=== PATIENT | male | born 1960 | race Two or more races ===

== ENCOUNTER 2025-02-21 19:37 | Inpatient (IN) | payer MEDICAID, OTHER ==
[~2025-02-21] VITALS: Ht 172.7 cm; Wt 82.4 kg
--- NOTE | 2025-02-21 20:57 | ED.PDOC ---
History of Present Illness HPI Comments This is a 64-year-old male who comes in with chief complaint of left back pain that radiates down to the left leg. The patient also has developing neuropathy and states that the pain seems to be worsening. The patient does has a history of recent chemotherapy approximately two months ago. Ever since the jian motherapy, the patient was has been having the symptoms of neuropathy. There has been no nausea, vomiting or diarrhea. The patient was also somewhat pale and has been anemic in the past. Time Seen by MD: 20:13 Reviewed Notes: Nurses Notes, Medications, Allergies (No allergies to medications) Allergies: Coded Allergies: NO KNOWN ALLERGIES (Unverified , 02/21/25) Information Source: Patient, Relative Mode of Arrival: Wheelchair Severity: Moderate Timing: Days Duration: Since onset Prehospital treatment: None Associated signs and symptoms Left flank pain that radiates around to the left leg Past Medical History PAST MEDICAL HISTORY: Cancer (Esophageal cancer with the), DM Surgical History: Hernia Repair Family History Family History: Family hx of Cancer Social History Smoker: Non-Smoker Alcohol: Denies ETOH Use Drugs: Denies Drug Use Lives In: Home Constitutional: denies: chills, diaphoresis, fatigue, fever, malaise, sweats, weakness, others EENTM: denies: blurred vision, double vision, ear bleeding, ear discharge, ear drainage, ear pain, ear ringing, eye pain, eye redness, hearing loss, mouth pain, mouth swelling, nasal discharge, nose bleeding, nose congestion, nose pain, photophobia, tearing, throat pain, throat swelling, voice changes, others Respiratory: denies: cough, hemoptysis, orthopnea, SOB at rest, shortness of breath, SOB with excertion, stridor, wheezing, others Cardiovascular: denies: chest pain, dizzy spells, diaphoresis, Dyspnea on exertion, edema, irregular heart beat, left arm pain, lightheadedness, pa lpitations, PND, syncope, others Gastrointestinal: denies: abdomen distended, abdominal pain, blood streaked bowels, constipated, diarrhea, dysphagia, difficulty swallowing, hematemesis, melena, nausea, poor appetite, poor fluid intake, rectal bleeding, rectal pain, vomiting, others Genitourinary: denies: burning, dysuria, flank pain, frequency, hematuria, incontinence, penile discharge, penile sore, pain, testicle pain, testicle swelling, urgency, others Neurological: denies: dizziness, fainting, headache, left sided numbness, left sided weakness, numbness, paresthesia, pre-existing deficit, right sided numbness, right sided weakness, seizure, speech problems, tingling, tremors, weakness, others Musculoskeletal: reports: others (Left leg pain as well as left flank pain); denies: back pain, gout, joint pain, joint swelling, muscle pain, muscle stiffness, neck pain Integumetry: denies: bruises, change in color, change in hair/nails, dryness, laceration, lesions, lumps, rash, wounds, others Allergic/Immunocompromised: denies: Difficulty Healing, Frequent Infections, Hives, Itching, others Hematologic/Lymphatic: denies: anemia, blood clots, easy bleeding, easy bruising, swollen glands, others Endocrine: denies: excessive hunger, excessive sweating, excessive thirst, excessive urination, flushing, intolerance to cold, intolerance to heat, unexplained weight gain, unexplained weight loss, others Psychiatric: denies: anxiety, bipolar disorder, depression, hopeless, panic disorder, schizophrenia, sleepless, suicidal, others Physical Exam General Appearance: Moderate Distress HEENT: Normal ENT Inspection, Pharynx Normal, TMs Normal Neck: Full Range of Motion, Non-Tender, Normal, Normal Inspection Respiratory: Chest Non-Tender, Lungs Clear, No Accessory Muscle Use, No Respiratory Distress, Normal Breath Sounds Cardiovascular: No Edema, No JVD, No Murmur, No Gallop, Normal Peripheral Pulses, Regular Rate/Rhythm Breast Exam: Deferred Gastrointestinal: No Organomegaly, Non Tender, No Pulsatile Mass, Normal Bowel Sounds, Soft Genitalia: Deferred Pelvic: Deferred Rectal: Deferred Extremities: No calf tenderness, Normal capillary refill, Normal inspection, Normal range of motion, Non-tender, No pedal edema Musculoskeletal : Location: Left Extremity Location: Back Apperance: Limited ROM, Tenderness: Moderate Neurologic: Alert, nurse outreach case manager II-XII nml as Tested, No Motor Deficits, Normal Affect, Normal Mood, No Sensory Deficits Cerebellar Function: Normal Reflexes: Normal Skin: Dry, Normal Color, Warm Lymphatic: No Adenopathy Was a procedure done? Was a procedure done?: No Differential Dx Considerations may include: Flank pain, neuropathy, generalized weakness X-Ray, Labs, Meds, VS Vital Signs Date Time Temp Pulse Resp B/P (MAP) Pulse Ox O2 Delivery O2 Flow Rate FiO2 02/21/25 20:45 97.5 124 22 115/67 (83) 100 97.5 Lab Test 02/21/25 21:15 02/21/25 20:56 Range/Units White Blood Count 12.6 H 4.4-10.8 10^3/uL Red Blood Count 3.45 L 4.5-5.90 10^6/uL Hemoglobin 9.4 L 13.5-17.5 g/dL Hematocrit 28.7 L 41.0-53.0 % Mean Corpuscular Volume 83.4 80.0-100.0 fL Mean Corpuscular Hemoglobin 27.2 L 28.0-32.0 pg Mean Corpuscular Hemoglobin Concent 32.7 32.0-36.0 g/dL Red Cell Distribution Width 17.9 H 11.8-14.3 % Platelet Count 487 H 140-450 10^3/uL Mean Platelet Volume 8.2 6.9-10.8 fL Neutrophils (%) (Auto) 76.0 37.0-80.0 % Lymphocytes (%) (Auto) 15.2 10.0-50.0 % Monocytes (%) (Auto) 8.1 0.0-12.0 % Eosinophils (%) (Auto) 0.2 0.0-7.0 % Basophils (%) (Auto) 0.5 0.0-2.0 % Neutrophils # (Auto) 9.6 H 1.6-8.6 10 ^3/uL Lymphocytes # (Auto) 1.9 0.4-5.4 10 ^3/uL Monocytes # (Auto) 1.0 0-1.3 10 ^3/uL Eosinophils # (Auto) 0 0-0.8 10 ^3/uL Basophils # (Auto) 0.1 0-0.2 10 ^3/uL Nucleated Red Blood Cells 0.0 % Sodium Level 134 L 136-145 mmol/L Potassium Level 4.0 3.5-5.1 mmol/L Chloride Level 105 98-107 mmol/L Carbon Dioxide Level 15 L 20-31 mmol/L Anion Gap 14 5-15 Blood Urea Nitrogen 21 9-23 mg/dL Creatinine 1.26 0.700-1.30 mg/dL Glomerular Filtration Rate Calc 64 >90 mL/min BUN/Creatinine Ratio 16.7 10.0-20.0 Serum Glucose 218 H 74-106 mg/dL Calcium Level 10.3 8.7-10.4 mg/dL Urine Color Yellow Yellow Urine Clarity Clear Clear Urine pH 7.5 5.0-9.0 Urine Specific [place] 1.017 1.001-1.035 Urine Protein Negative Negative Urine Ketones Trace Negative Urine Blood Negative Negative /uL Urine Nitrite Negative Negative Urine Bilirubin Negative Negative Urine Urobilinogen 2 H Negative mg/dL Urine Leukocyte Esterase Negative Negative /uL Urine RBC 1 0 - 3 /hpf Urine Microscopic WBC 1 0-3 /HPF Urine Squamous Epithelial Cells None seen <5 /hpf Urine Bacteria None seen None Seen /hpf Urine Hyaline Casts Few 0 - 2 /lpf Urine Glucose Normal Normal mg/dL The patient's urine test is negative The urine test is negative for any infection The patient's CBC shows anemia with a hemoglobin of 9.4 and hematocrit 28.7 The platelets are 487 At this time, the patient was being admitted to the hospitalist The patient was having persistent pain The patient is understands and agrees with the management Images Reviewed?: Images reviewed and evaluated by me Time of 1ST Reevaluation: 22:11 Reevaluation 1ST: Unchanged Patient Education/Counseling: Diagnosis, Treatment, Prognosis Family Education/Counseling: Diagnosis, Treatment, Prognosis Departure 1 Departure Time of Disposition: 22:11 Impression: Primary Impression: Left leg pain Additional Impression: Neuropathy Disposition: 09 ADMITTED INPATIENT Admit to: Med Surg Condition: Fair Critical Care Note Critical Care Time?: No Stability Stability form required: Yes Unstable for transfer: ED Physician Assesment (Clinical assesment) Heart Score Heart Score: Heart Score Response (Comments) Value History N/A 0 EKG N/A 0 Age N/A 0 Risk Factors N/A 0 Troponin N/A 0 Total 0 DAMION ROLLINS MD February 21, 2025 20:57
[2025-02-21 21:14] LABS: Urine Bacteria None Seen /hpf (None Seen)
[2025-02-21 21:30] LABS: Basophils # (auto) 0.1 10 ^3/uL (0-0.2); Eosinophils # (auto) 0 10 ^3/uL (0-0.8); Eosinophils % (auto) 0.2 % (0.0-7.0); Hemoglobin 9.4 g/dL (13.5-17.5); Lymphocytes # (auto) 1.9 10 ^3/uL (0.4-5.4); Mean Corpuscular Volume 83.4 fL (80.0-100.0)
[2025-02-21 21:31] LABS: Urine Blood Negative /uL (Negative); Urine Clarity Clear (Clear); Urine Color Yellow (Yellow); Urine Hyaline Cast FEW /lpf (0 - 2); Urine Protein, UAD Negative (Negative); Urine Specific Gravity 1.017 (1.001-1.035); Urine Squamous Epithelial Cell None Seen /hpf (<5); Urine Urobilinogen 2 mg/dL (Negative); Urine WBC 1 /HPF (0-3); Urine pH 7.5 (5.0-9.0)
[2025-02-21 21:31] LABS: Basophils % (auto) 0.5 % (0.0-2.0); Hematocrit 28.7 % (41.0-53.0); Lymphocytes % (auto) 15.2 % (10.0-50.0); Mean Corpuscular Hemoglobin 27.2 pg (28.0-32.0); Mean Corpuscular Hgb Conc. 32.7 g/dL (32.0-36.0); Monocytes % (auto) 8.1 % (0.0-12.0); Neutrophils # (auto) 9.6 10 ^3/uL (1.6-8.6); Platelet Count (auto) 487 10^3/uL (140-450); Red Blood Cells 3.45 10^6/uL (4.5-5.90); Red Cell Distribution Width 17.9 % (11.8-14.3); White Blood Cell 12.6 10^3/uL (4.4-10.8)
[2025-02-21 21:39] LABS: Anion Gap 14 (5-15); Carbon Dioxide 15 mmol/L (20-31); Chloride 105 mmol/L (98-107); Sodium 134 mmol/L (136-145)
[2025-02-21 21:40] LABS: Calcium 10.3 mg/dL (8.7-10.4)
[2025-02-21 21:45] LABS: BUN/Creatinine Ratio 16.7 (10.0-20.0); Blood Urea Nitrogen 21 mg/dL (9-23)
[2025-02-21 21:52] LABS: Glucose 218 mg/dL (74-106)
[2025-02-21] MEDS ORDERED: ONDANSETRON HCL 4 MG/2 ML VIAL IV PRN (23:00)
[2025-02-21] MEDS ORDERED: ACETAMINOPHEN 325 MG TAB PO PRN (23:00)
[2025-02-22] VITALS (8 sets, daily range): BP systolic 112–143; BP diastolic 64–79; PULSE 79–99; RESP 16–24; TEMP 97.8–98.9; O2SAT 96–100
[2025-02-22] MEDS: ONDANSETRON HCL 4 MG/2 ML VIAL IV ONE (00:47)
[2025-02-22] MEDS: SODIUM CHLORIDE 0.9% 500 ML IV ONE (00:47)
[2025-02-22] MEDS: MORPHINE SULFATE 4 MG/ML SYR/VIAL IV ONE (00:48)
[2025-02-22] MEDS: MORPHINE SULFATE INJ 2 MG/ml SYRG IV PRN (03:15)
--- NOTE | 2025-02-22 03:19 | DVHHP2 ---
History of Present Illness History of Present Illness This is a 64-year-old male with a history of esophageal cancer treated with six cycles of chemotherapy in [place], the last one completed approximately two months ago. He recently immigrated to the [place] The patient presents with progressive for 2 weeks low back pain radiating to the left leg, described as sharp and exacerbated by ambulation. He denies numbness, paresthesia, or bowel/bladder incontinence. The patient reports that he was prescribed gabapentin, tramadol and trazodone at [facility], but his symptoms have worsened despite medication. He is seeking evaluation and pain management. He denies nausea, vomiting, weight loss, dysphagia, or other systemic symptoms at this time. The patient reports that surgery for his cancer was deferred due to proximity to vital structures (possible R2 resection risk). Past Medical History: Esophageal cancer (no surgical resection, received chemotherapy) Diabetes mellitus Surgical History: Hernia repair Medications: Tramadol Trazodone Gabapentin Allergies: No known drug allergies Social History: Non-smoker Denies alcohol and drug use Lives at home Review of Systems: Negative except as per HPI. Denies fevers, chills, night sweats, weakness, weight loss, bowel or bladder dysfunction, or neurologic deficits. Review of Systems Allergies: Coded Allergies: NO KNOWN ALLERGIES (Unverified , 02/21/25) Medications Current Medications Medications Dose Ordered Sig/Edward Route Start Time Stop Time Status Last Admin Dose Admin Acetaminophen 650 mg Q6HP PRN PO 02/21/25 23:00 Acetaminophen/ Hydrocodone Bitart 1 tab Q4HP PRN PO 02/21/25 23:00 Ondansetron HCl 4 mg Q4HP PRN IV 02/21/25 23:00 Morphine Sulfate 2 mg Q4HPRN PRN IV 02/21/25 23:00 02/22/25 03:15 2 MG Enoxaparin Sodium 40 mg DAILY SC 02/22/25 10:00 Exam Vital Signs Vital Signs Date Time Temp Pulse Resp B/P (MAP) Pulse Ox O2 Delivery O2 Flow Rate FiO2 02/22/25 03:15 79 18 129/72 02/22/25 00:20 98.0 100 98.0 02/22/25 00:20 Room Air* 0 21 Exam General: Alert, in mild distress due to pain HEENT: Normocephalic, atraumatic Cardiovascular: RRR, no murmurs, gallops, or rubs Pulmonary: Clear breath sounds bilaterally Abdomen: Soft, non-tender, normoactive bowel sounds Back: Mild tenderness over lumbar spine, no deformity Neurological: No focal deficits, strength intact, no saddle anesthesia Extremities: No edema, pulses present Labs/Xrays Labs Test 02/22/25 00:39 02/21/25 21:15 02/21/25 20:56 Range/Units POC Glucose 161 H 70-106 mg/dl White Blood Count 12.6 H 4.4-10.8 10^3/uL Red Blood Count 3.45 L 4.5-5.90 10^6/uL Hemoglobin 9.4 L 13.5-17.5 g/dL Hematocrit 28.7 L 41.0-53.0 % Mean Corpuscular Volume 83.4 80.0-100.0 fL Mean Corpuscular Hemoglobin 27.2 L 28.0-32.0 pg Mean Corpuscular Hemoglobin Concent 32.7 32.0-36.0 g/dL Red Cell Distribution Width 17.9 H 11.8-14.3 % Platelet Count 487 H 140-450 10^3/uL Mean Platelet Volume 8.2 6.9-10.8 fL Neutrophils (%) (Auto) 76.0 37.0-80.0 % Lymphocytes (%) (Auto) 15.2 10.0-50.0 % Monocytes (%) (Auto) 8.1 0.0-12.0 % Eosinophils (%) (Auto) 0.2 0.0-7.0 % Basophils (%) (Auto) 0.5 0.0-2.0 % Neutrophils # (Auto) 9.6 H 1.6-8.6 10 ^3/uL Lymphocytes # (Auto) 1.9 0.4-5.4 10 ^3/uL Monocytes # (Auto) 1.0 0-1.3 10 ^3/uL Eosinophils # (Auto) 0 0-0.8 10 ^3/uL Basophils # (Auto) 0.1 0-0.2 10 ^3/uL Nucleated Red Blood Cells 0.0 % Sodium Level 134 L 136-145 mmol/L Potassium Level 4.0 3.5-5.1 mmol/L Chloride Level 105 98-107 mmol/L Carbon Dioxide Level 15 L 20-31 mmol/L Anion Gap 14 5-15 Blood Urea Nitrogen 21 9-23 mg/dL Creatinine 1.26 0.700-1.30 mg/dL Glomerular Filtration Rate Calc 64 >90 mL/min BUN/Creatinine Ratio 16.7 10.0-20.0 Serum Glucose 218 H 74-106 mg/dL Calcium Level 10.3 8.7-10.4 mg/dL Urine Color Yellow Yellow Urine Clarity Clear Clear Urine pH 7.5 5.0-9.0 Urine Specific [place] 1.017 1.001-1.035 Urine Protein Negative Negative Urine Ketones Trace Negative Urine Blood Negative Negative /uL Urine Nitrite Negative Negative Urine Bilirubin Negative Negative Urine Urobilinogen 2 H Negative mg/dL Urine Leukocyte Esterase Negative Negative /uL Urine RBC 1 0 - 3 /hpf Urine Microscopic WBC 1 0-3 /HPF Urine Squamous Epithelial Cells None seen <5 /hpf Urine Bacteria None seen None Seen /hpf Urine Hyaline Casts Few 0 - 2 /lpf Urine Glucose Normal Normal mg/dL Assessment/Plan Assessment/Plan #Acute intractable lumbar pain #Possible sciatica #Rule out bone fracture #Esophageal cancer #Rule out mets? #Leukocytosis #Anemia, possible 2 to Ca #Diabetes type 2 #JOHN due to VMN w/o baseline creatinine Admit Med/surg CT scan: thorax/abdomen/pelvis with contrast Lumbar MRI [place] Morphine Cyclobenzaprine Gabapentin ISS Enoxaparin SC Protonix IV Labs am Case discussed with Dr Blackburn Full code Plan discussed with: Patient, Other (RN) My Orders Orders - FÉLIX RAMIREZ Procedure Category Date Status Time Admit ADMIT 02/21/25 Transmitted 22:54 Code Status CODE 02/21/25 Transmitted 22:54 Vital Signs INGA 02/21/25 In Process 22:54 Review Orders With INGA 02/21/25 In Process Adm. 22:54 Consistent DIET 02/22/25 Transmitted Carb(Ccho)Diabetes Breakfast Acetaminophen Tablet PHA 02/21/25 In Process (Tylenol Tablet) 23:00 Notify Of Changes INGA 02/21/25 In Process From Base 22:54 Advance Directive INGA 02/21/25 In Process 22:54 Chest Two Views XY 02/22/25 Logged Routine 04:00 Patient Condition ORDERS 02/21/25 Transmitted 22:54 Allergies INGA 02/21/25 In Process 22:54 Hydrocodone-Acet PHA 02/21/25 In Process 5/325mg Tab ([place] 23:00 Ondansetron Hcl PHA 02/21/25 In Process (Zofran) 23:00 Morphine Sulfate PHA 02/21/25 In Process Injection 23:00 Enoxaparin Sodium PHA 02/22/25 In Process (Lovenox) 10:00 Lumbar Spine 3 View XY 02/21/25 Logged 22:56 Date of Service: February 21, 2025 Billing Provider: YEVGENIY BLACKBURN MD Common Visit Codes: 76906-AFIYTNO INP/OBS CARE (HIGH) Secondary Visit Codes: 54647-OYNIFFZB CARE PLAN 30 MINUTES FÉLIX RAMIREZ RESIDENT February 22, 2025 03:19
[2025-02-22] MEDS ORDERED: DEXTROSE (50%) 50ML SYRG IV PRN (04:30)
[2025-02-22] MEDS: ACCU-CHEK COMFORT CURVE STRIP VI SCH (06:16)
[2025-02-22] MEDS: InsuLIN REG 1unit/0.01ml Soln (100units/ml) SC SCH (06:20)
[2025-02-22 07:28] LABS: Basophils # (auto) 0 10 ^3/uL (0-0.2); Basophils % (auto) 0.5 % (0.0-2.0); Eosinophils # (auto) 0.1 10 ^3/uL (0-0.8); Eosinophils % (auto) 0.5 % (0.0-7.0); Hematocrit 26.7 % (41.0-53.0); Hemoglobin 8.8 g/dL (13.5-17.5); Lymphocytes # (auto) 1.8 10 ^3/uL (0.4-5.4); Lymphocytes % (auto) 18.1 % (10.0-50.0); Mean Corpuscular Hemoglobin 27.4 pg (28.0-32.0); Mean Corpuscular Volume 83.1 fL (80.0-100.0); Monocytes # (auto) 1.1 10 ^3/uL (0-1.3); Neutrophils # (auto) 7.1 10 ^3/uL (1.6-8.6); Neutrophils % (auto) 69.9 % (37.0-80.0); Nucleated Red Blood Cells % 0.1 %; Platelet Count (auto) 382 10^3/uL (140-450); Red Blood Cells 3.22 10^6/uL (4.5-5.90); Red Cell Distribution Width 18.2 % (11.8-14.3); White Blood Cell 10.2 10^3/uL (4.4-10.8)
[2025-02-22 07:38] LABS: Albumin 3.9 g/dL (3.2-4.8); Alkaline Phosphatase 104 U/L (46-116); Anion Gap 11 (5-15); BUN/Creatinine Ratio 19.4 (10.0-20.0); Bilirubin, Total 0.5 mg/dL (0.2-1.0); Blood Urea Nitrogen 20 mg/dL (9-23); Calcium 9.8 mg/dL (8.7-10.4); Chloride 105 mmol/L (98-107); Potassium 3.6 mmol/L (3.5-5.1); Total Protein 7.4 g/dL (5.7-8.2)
[2025-02-22 07:44] LABS: Alanine Aminotransferase < 9 U/L (7-40); Aspartate Aminotransferase 12 U/L (13-40); Carbon Dioxide 19 mmol/L (20-31); Glucose 136 mg/dL (74-106); Sodium 135 mmol/L (136-145)
[2025-02-22] MEDS: IOHEXOL 300 MG/ML 100ML BOTTLE IJ ONE (08:33)
--- NOTE | 2025-02-22 09:27 | DVH ---
CHEST RADIOGRAPH Indication: dyspnea Technique: Frontal and lateral view of the chest was obtained Comparison: None FINDINGS: Lines and Tubes: None Lungs: Multifocal airspace disease. Pleura: No effusion. No pneumothorax. Cardiomediastinal contours: Unremarkable Bones: Unremarkable IMPRESSION: Multifocal airspace disease.
[2025-02-22] MEDS: GABAPENTIN 100 MG CAP PO SCH (10:12)
[2025-02-22] MEDS: PANTOPRAZOLE 40 MG/10 ML VIAL INJ IV SCH (10:13)
[2025-02-22] MEDS: ENOXAPARIN SOD 40 MG/0.4 ML SYRINGE SC SCH (10:13)
--- NOTE | 2025-02-22 11:22 | DVH ---
PROCEDURE: MRI LUMBAR SPINE WO CONTRAST INDICATION: lumbar pain Exam Date: 02/22/2025 08:17 AM COMPARISON: None TECHNIQUE: MRI lumbar spine without intravenous contrast. FINDINGS: The lumbar alignment is intact. Abnormal marrow signal in the left L1, L2, and L3 vertebral bodies. S oft tissue mass involving the left paraspinal soft tissues at the L2-3 level measuring up to 53 mm. There are degenerative endplate changes including modic endplate changes with anterior and lateral o steophytes throughout the lumbar spine. The visualized distal spinal cord and conus medullaris are wi thin normal limits. The conus medullaris appears to terminate within normal limits. The following axial levels are detailed below: T12-L1: Unremarkable. L1-L2: There is a mild circumferential disc bulge. No significant central canal or neuroforaminal s tenosis. L2-L3: Unremarkable. L3-L4: Unremarkable. L4-L5: There is a moderate circumferential disc bulge complicated by facet arthropathy associated w ith mild to moderate left neuroforaminal stenosis. No significant central canal stenosis. L5-S1: There is a moderate circumferential disc bulge complicated by facet arthropathy associated wi th mild to moderate bilateral neuroforaminal stenosis. No significant central canal stenosis. IMPRESSION: 1. Abnormal marrow signal in the left vertebral bodies of L1 through L3. Adjacent left paraspinal mas s. Findings are concerning for malignancy. Findings are incompletely evaluated without intravenous contrast. Recommend further evaluation with MRI of the lumbar spine with intravenous contrast. Also recommend further evaluation with CT of the abdomen and pelvis with contrast. Paraspinal mass is like ly amenable to CT-guided biopsy. 2. Multilevel degenerative disease. No significant central canal stenosis. Neural foraminal stenosis as above. Please note there may be tumor involving left neural foramen in the upper lumbar spine alt misty this is not well evaluated without intravenous contrast. HS:Y
--- NOTE | 2025-02-22 11:52 | DVH ---
Indication: esophageal cancer Technique: CT axial images of the chest, abdomen and pelvis are obtained with intravenous contrast. Coronal and sagittal reformats were obtained. Radiation Dose Information: CTDI volume is 12.09 mGy. Dose-length product is 887.83 mGy*cm Comparison: None FINDINGS: Trachea is patent. No pneumothorax. Right upper lobe solid nodule measuring 1.8 cm. Right upper lobe solid nodule measuring 10 mm. Right upper lobe ground-glass nodule measuring 6 mm. Left upper lobe so lid nodule measuring 7 mm. Left upper lobe solid nodule measuring 5 mm. Left upper lobe ground-glass nodule measuring 7 mm. Left lower lobe solid nodule measuring 8 mm. Left lower lobe ground-glass nodu le measuring 7 mm. Left lower lobe subpleural nodule measuring 7 mm. Small left pleural effusion. The heart is normal in size. Enlarged aortopulmonary lymph node measuring 1.9 cm. Coronary artery lee cification disease. No supraclavicular or axillary lymphadenopathy. There is extensive wall thickening of the mid to distal esophagus. Gastric wall thickening Adrenal glands unremarkable. No enhancing splenic lesion. Pancreas is unremarkable. No enhancing hepatic lesion. No CT evidence for cholelithiasis. The kidneys demonstrate no hydronephrosism Heterogeneously enhancing lesion in the posterior left perirenal space measuring 4.9 x 4.9 cm extendi ng to the left psoas musculature . Other smaller posterior left perianal lesions measuring 1.9 cm, 1 .1 cm, 3.1 cm. The 3.1 cm lesion May extend into the left kidney. Mesenteric axis soft tissue density surrounding the celiac artery Stomach nondistended. Small bowel loops are normal in caliber. Moderate volume stool in the colon. No rmal appendix. Abdominal aorta normal in caliber. Bladder distended. Posterior/ left bladder wall asymmetrical thick ening. Presacral edema. No inguinal lymphadenopathy. Possible posterior right gluteal mass measuring 6.1 x 7.3 cm. L1 lytic and destructive lesion measuring 1.7 cm. L2 lytic and destructive lesion measuring 2.2 cm. T here is a large expansile and destructive lesion involving the anterolateral right 9th rib measuring 6.0 x 6.1 cm. IMPRESSION: 1. Mid to distal esophageal wall thickening consistent with patient's known history of esophageal car cinoma. There is also gastric wall thickening. Correlate to exclude of the esophageal carcinoma. 2. Left perirenal soft tissue masses /necrotic lesions measuring up to 4.9 cm as described above cons istent with metastatic lesions. 3. Bilateral pulmonaryNodules up to 1.8 cm, likely metastases 4. Destructive lytic metastatic lesions at L1 and L2 vertebral bodies measuring 1.7 and 2.2 cm respec tively. Recommend MRI lumbar spine with and without contrast to evaluate for neural foraminal, spinal canal compression. 5. Antral lateral 9th right rib expansile and destructive lesion with soft tissue component measuring 6.1 cm consistent with metastatic disease. 6. Mesenteric axis soft tissue density surrounding the celiac artery, may represent metastatic diseas e. 7. Small left pleural effusion. 8. Mediastinal lymphadenopathy. 9. Left lateral and posterior bladder wall thickening. 10. Other findings as described.
--- NOTE | 2025-02-22 14:14 | DVHPNRES ---
Progress Note Date Seen: February 22, 2025 Resident Creating Document: PARESH CYR RESIDENT Medical Necessity Reason Pt with a Central, PICC or Fol: No Subjective Review of Systems Mr Jaimes is 64-year-old male with a history of esophageal cancer treated with six cycles of chemotherapy in [place], the last one completed approximately two months ago. He recently immigrated to the [place] The patient presents with progressive for 2 weeks low back pain radiating to the left leg, described as sharp and exacerbated by ambulation. He denies numbness, paresthesia, or bowel/bladder incontinence. The patient reports that he was prescribed gabapentin, tramadol and trazodone at [facility], but his symptoms have worsened despite medication. He is seeking evaluation and pain management. He denies nausea, vomiting, weight loss, dysphagia, or other systemic symptoms at this time. The patient reports that surgery for his cancer was deferred due to proximity to vital structures (possible aortic resection risk). Patient seen and examined at the bedside. Patient currently reporting right- sided lower back tenderness and pain has been going to right lower extremity posterior aspect. MRI and CT showing possible metastasis to multiple organs. Objective vital signs Vital Sign Date Time Temp Pulse Resp B/P (MAP) Pulse Ox O2 Delivery O2 Flow Rate FiO2 02/22/25 12:31 97.8 83 16 112/65 (81) 99 97.8 02/22/25 08:00 Room Air* 0 21 Total Intake and Output 02/21/25 02/21/25 02/22/25 15:00 23:00 07:00 Intake Total 0 ml Balance 0 ml medications Current Medications Medications Dose Ordered Sig/Edward Route Start Time Stop Time Status Last Admin Dose Admin Acetaminophen/ Hydrocodone Bitart 1 tab Q4HP PRN PO 02/21/25 23:00 Ondansetron HCl 4 mg Q4HP PRN IV 02/21/25 23:00 Morphine Sulfate 2 mg Q4HPRN PRN IV 02/21/25 23:00 02/22/25 03:15 2 MG Enoxaparin Sodium 40 mg DAILY SC 02/22/25 10:00 02/22/25 10:13 40 MG Cyclobenzaprine HCl 5 mg Q8HPRN PRN PO 02/22/25 03:30 Diagnostic Test (Pha) 1 strip ACHS 02/22/25 07:00 02/22/25 06:16 1 STRIP Insulin Human Regular ACHS SC 02/22/25 07:00 02/22/25 06:20 2 UNITS Dextrose 50 ml UD PRN IV 02/22/25 04:30 Gabapentin 100 mg BID PO 02/22/25 10:00 02/22/25 10:12 100 MG Pantoprazole Sodium 40 mg DAILY IV 02/22/25 10:00 02/22/25 10:13 40 MG Examination Pt is lying on bed General Appearance: Alert, Oriented X3, Cooperative, Not in acute distress HEENT: Atraumatic, Mucous membranes moist/pink Respiratory: Clear to auscultation, Normal air movement, No added sounds Cardiovascular: Regular rate, Normal S1, Normal S2, No murmurs Abdominal: Active bowel sounds, Soft, no distention, no tenderness Extremities: No edema, Normal pulses, No tenderness/swelling MSK:Tenderness at right paraspinal area and right hip Skin: No Significant rash, except past surgical scars Neuro: Normal speech, sensorimotor deficits none Psych/Mental Status: Mental status NL, Mood NL Nurse was there as sharperone during examination laboratory and microbiology Laboratory Tests 02/22/25 06:46 Test 02/22/25 06:46 Range/Units Serum Glucose 136 H 74-106 mg/dL Labs and/or images reviewed: Labs reviewed by me, Image(s) reviewed by me Problem List/Assessment/Plan Problem List/Assessment/Plan # Acute intractable lumbar pain # ? multiple metastasis spine, lung, renal, ribs # Esophageal cancer status post chemotherapy # Anemia, possible 2 to Ca # Sciatica likely from spinal stenosis from possible meds - MRI lumbar spine showed abnormal marrow signal in the left vertebral bodies of L1 through L3. Adjacent left paraspinal mass, concerning for malignancy - CT abdomen, pelvis, chest showed multiple metastases as described above - hematology oncology consult - pain management for now with the gabapentin, morphine, [place], cyclobenzaprine - IR consult for possible biopsy - Protonix IV # Hypercoagulable state secondary to malignancy - prophylactic Lovenox # JOHN due to VMN w/o baseline creatinine - likely due to possible underlying malignancy versus vasomotor - monitor lab # Uncontrolled type 2 DM - HbA1c- 5.7 - Accu-Cheks and ISS Protonix Lovenox Diabetic diet Goals of care discussed with the patient for more than 29 minutes: Full code status Case discussed with Dr. Mueller, patient and nurse Plan discussed with: Patient PARESH CYR RESIDENT February 22, 2025 14:14
[2025-02-23 01:00] VITALS: BP 127/78; PULSE 87; RESP 20; TEMP 98.8; O2SAT 99
[2025-02-23] MEDS: HYDROcodone-ACET 5/325MG TAB PO PRN (03:59)
[2025-02-23 05:00] VITALS: BP 141/79; PULSE 82; RESP 20; TEMP 97.7; O2SAT 98
[2025-02-23 07:39] LABS: Basophils # (auto) 0 10 ^3/uL (0-0.2); Basophils % (auto) 0.4 % (0.0-2.0); Eosinophils # (auto) 0 10 ^3/uL (0-0.8); Eosinophils % (auto) 0.4 % (0.0-7.0); Hematocrit 26.8 % (41.0-53.0); Hemoglobin 8.7 g/dL (13.5-17.5); Lymphocytes # (auto) 1.8 10 ^3/uL (0.4-5.4); Lymphocytes % (auto) 20.3 % (10.0-50.0); Mean Corpuscular Hgb Conc. 32.4 g/dL (32.0-36.0); Mean Corpuscular Volume 83.3 fL (80.0-100.0); Monocytes # (auto) 1.2 10 ^3/uL (0-1.3); Monocytes % (auto) 12.9 % (0.0-12.0); Platelet Count (auto) 373 10^3/uL (140-450); Red Blood Cells 3.21 10^6/uL (4.5-5.90); Red Cell Distribution Width 18.2 % (11.8-14.3); White Blood Cell 9.1 10^3/uL (4.4-10.8)
[2025-02-23 07:57] LABS: Albumin 3.8 g/dL (3.2-4.8); Alkaline Phosphatase 101 U/L (46-116); Anion Gap 13 (5-15); BUN/Creatinine Ratio 18.8 (10.0-20.0); Blood Urea Nitrogen 18 mg/dL (9-23); Calcium 9.8 mg/dL (8.7-10.4); Chloride 107 mmol/L (98-107); Sodium 136 mmol/L (136-145); Total Protein 7.3 g/dL (5.7-8.2)
[2025-02-23 07:58] LABS: Bilirubin, Total 0.8 mg/dL (0.2-1.0)
[2025-02-23 08:00] VITALS: PULSE 86; RESP 18; O2SAT 98
[2025-02-23 08:05] VITALS: BP 136/82; PULSE 80; RESP 17; TEMP 97.1; O2SAT 98
[2025-02-23 08:07] LABS: Alanine Aminotransferase < 9 U/L (7-40); Aspartate Aminotransferase 12 U/L (13-40); Carbon Dioxide 16 mmol/L (20-31); Glucose 123 mg/dL (74-106); Potassium 3.3 mmol/L (3.5-5.1)
[2025-02-23 11:53] VITALS: BP 142/83; PULSE 80; RESP 18; TEMP 97.6; O2SAT 98
[2025-02-23] MEDS: CYCLOBENZAPRINE HCL 10 MG TAB PO PRN (14:20)
[2025-02-23] MEDS ORDERED: BACL10TA PO (14:55)
[2025-02-23] MEDS ORDERED: HYDR-4798 PO (14:55)
--- NOTE | 2025-02-23 15:13 | DVHDS2 ---
Discharge Summary Date of Admission February 21, 2025 at 22:54 Date of Discharge: February 23, 2025 Labs/Diagnostic Data: Laboratory Results Test 02/23/25 11:01 02/23/25 06:33 02/22/25 06:46 02/21/25 20:56 POC Glucose 143 mg/dl (70-106) White Blood Count 9.1 10^3/uL (4.4-10.8) Red Blood Count 3.21 10^6/uL (4.5-5.90) Hemoglobin 8.7 g/dL (13.5-17.5) Hematocrit 26.8 % (41.0-53.0) Mean Corpuscular Volume 83.3 fL (80.0-100.0) Mean Corpuscular Hemoglobin 27.0 pg (28.0-32.0) Mean Corpuscular Hemoglobin Concent 32.4 g/dL (32.0-36.0) Red Cell Distribution Width 18.2 % (11.8-14.3) Platelet Count 373 10^3/uL (140-450) Mean Platelet Volume 8.7 fL (6.9-10.8) Neutrophils (%) (Auto) 66.0 % (37.0-80.0) Lymphocytes (%) (Auto) 20.3 % (10.0-50.0) Monocytes (%) (Auto) 12.9 % (0.0-12.0) Eosinophils (%) (Auto) 0.4 % (0.0-7.0) Basophils (%) (Auto) 0.4 % (0.0-2.0) Neutrophils # (Auto) 6.0 10 ^3/uL (1.6-8.6) Lymphocytes # (Auto) 1.8 10 ^3/uL (0.4-5.4) Monocytes # (Auto) 1.2 10 ^3/uL (0-1.3) Eosinophils # (Auto) 0 10 ^3/uL (0-0.8) Basophils # (Auto) 0 10 ^3/uL (0-0.2) Nucleated Red Blood Cells 0.0 % Sodium Level 136 mmol/L (136-145) Potassium Level 3.3 mmol/L (3.5-5.1) Chloride Level 107 mmol/L (98-107) Carbon Dioxide Level 16 mmol/L (20-31) Anion Gap 13 (5-15) Blood Urea Nitrogen 18 mg/dL (9-23) Creatinine 0.96 mg/dL (0.700-1.30) Glomerular Filtration Rate Calc 88 mL/min (>90) BUN/Creatinine Ratio 18.8 (10.0-20.0) Serum Glucose 123 mg/dL (74-106) Calcium Level 9.8 mg/dL (8.7-10.4) Total Bilirubin 0.8 mg/dL (0.2-1.0) Aspartate Amino Transferase (AST) 12 U/L (13-40) Alanine Aminotransferase (ALT) < 9 U/L (7-40) Alkaline Phosphatase 101 U/L (46-116) Total Protein 7.3 g/dL (5.7-8.2) Albumin 3.8 g/dL (3.2-4.8) Hemoglobin A1c 5.7 % A1C (<5.7) Thyroid Stimulating Hormone (TSH) 2.18 uIU/mL (0.55-4.78) Urine Color Yellow (Yellow) Urine Clarity Clear (Clear) Urine pH 7.5 (5.0-9.0) Urine Specific Allen 1.017 (1.001-1.035) Urine Protein Negative (Negative) Urine Ketones Trace (Negative) Urine Blood Negative /uL (Negative) Urine Nitrite Negative (Negative) Urine Bilirubin Negative (Negative) Urine Urobilinogen 2 mg/dL (Negative) Urine Leukocyte Esterase Negative /uL (Negative) Urine RBC 1 /hpf (0 - 3) Urine Microscopic WBC 1 /HPF (0-3) Urine Squamous Epithelial Cells None seen /hpf (<5) Urine Bacteria None seen /hpf (None Seen) Urine Hyaline Casts Few /lpf (0 - 2) Urine Glucose Normal mg/dL (Normal) Other Laboratory Tests 02/23/25 06:33 Brief Hx & Hospital Course: HPI : This is a 64-year-old male with a history of esophageal cancer treated with six cycles of chemotherapy in [place], the last one completed approximately two months ago. He recently immigrated to the [place] The patient presents with progressive for 2 weeks low back pain radiating to the left leg, described as sharp and exacerbated by ambulation. He denies numbness, paresthesia, or bowel/bladder incontinence. The patient reports that he was prescribed gabapentin, tramadol and trazodone at [facility], but his symptoms have worsened despite medication. He is seeking evaluation and pain management. He denies nausea, vomiting, weight loss, dysphagia, or other systemic symptoms at this time. The patient reports that surgery for his cancer was deferred due to proximity to vital structures (possible R2 resection risk). Summary: Patient presented with worsening left-sided back pain radiating down the left leg. Patient had sciatic leg pain but his high risk as he has ongoing diagnosis of esophageal cancer recently been treated in [place] and has not seen any oncologist in [facility]. Patient was a [place] citizen, has insured. Social consulted to help with insurance advice. On initial eval patient has pinpoint tenderness on spinal column raising concern for worsening progression of cancer. Patient has esophageal cancer and has received RT in [place] X 6 and was told he was a non operable as the cancer is close to the aorta. On admit labs showing leukocytosis 12.6, neutropenia absolute 9.6, anemia 9.4 normocytic, thrombocytosis 487, CMP with mild acidosis, mild hyponatremia and some hyperglycemia but mostly unremarkable. On imaging patient was found to have multiple metastatic lesions and masses involving ribs, spine, kidneys, lung. Patient and family are not aware of the metastatic disease but appears that doctors in [place] did have discussion of possible poor prognosis. Patient was offered biopsy of largest mass which is paraspinal but patient declines. Patient has pinching mentation is offered CT head but patient family declines. Patient declines to to be informed of disease and wants to make his daughter Yesenia JIMENEZ at this point and for her to carry out further decisions. Discussion held with daughter and she wants to hold off CT head, biopsy, and she informs provider and hospital team that patient's last wishes were to remain calm and happy in close to family. No further inpatient treatment indicated at this point patient vital signs stable patient was A&O times 3-4, having hallucinations but not bothersome, outpatient plan developed with patient and family. Patient ready for discharge as per plan below. Diagnosis: # Acute intractable lumbar pain , due to below, stable, tolerable with oral analgesics # ? multiple metastasis likely; spine, lung, renal, ribs # Esophageal cancer status post chemotherapy # Anemia, possible due to AoCD 2/2 CA # Sciatica likely from spinal stenosis from possible meds # Hypercoagulable state secondary to malignancy # JOHN due to VMN w/o baseline creatinine # Uncontrolled type 2 DM Discharge plan: - continue home medications - ambulate as tolerated - baclofen for muscle pain - norco for back pain (if fail control with OTC tylenol and ibuprofen). upto 3x/day as needed. - home health for medication management and vital checks - follow-up with pcp and oncology outpatient. Condition at Discharge: Fair Final Diagnosis/Problems List # Acute intractable lumbar pain , due to below # ? multiple metastasis likely; spine, lung, renal, ribs # Esophageal cancer status post chemotherapy # Anemia, possible due to AoCD 2/2 CA # Sciatica likely from spinal stenosis from possible meds # Hypercoagulable state secondary to malignancy # JOHN due to VMN w/o baseline creatinine # Uncontrolled type 2 DM Discharge Disposition: Home with Health Services Discharge Instruct/Medications Diet: Regular Activity: No Restrictions, As Tolerated Follow Up/Referral: pcp, oncology Medications: below Discharge Statement: "Patient was advised to return to the ER or call 911 if any headaches, dizziness, shortness of breath, chest pain, abdominal pain, bleeding, fevers, or worsening of medical condition. Patient was counseled about treatment plan, medications, possible side effects, patientverbalized understanding. All questions were answered to the best of my ability. This discharge took greater then 30 minutes in planning, reviewing documentation, counseling the patient, and discussing with other team members." Date of Service: February 23, 2025 Billing Provider: ANABELLE DELACRUZ MD Common Visit Codes: 95341-LNR/OBS DISCH DAY >30min ANABELLE DELACRUZ MD February 23, 2025 15:13
[2025-02-23 16:41] VITALS: BP 142/75; PULSE 75; RESP 16; TEMP 98; O2SAT 98
== END 2025-02-23 19:00 | disposition home health service (06) | DRG 347 ==
LOC: ER 19:37 → OVERFLOW 22:54 → WEST WING 02-22 02:58
PROVIDERS: ADMIT Student in an Organized Health Care Education/Training Program; ATTEND Emergency Medicine
DX: M48.061 Spinal stenosis, lumbar region without neurogenic claudication (principal); N17.0 Acute kidney failure with tubular necrosis; C79.51 Secondary malignant neoplasm of bone; C79.00 Secondary malignant neoplasm of unspecified kidney and renal pelvis; D68.59 Other primary thrombophilia; E87.20 Acidosis, unspecified; E87.1 Hypo-osmolality and hyponatremia; D70.9 Neutropenia, unspecified; C15.9 Malignant neoplasm of esophagus, unspecified; E11.40 Type 2 diabetes mellitus with diabetic neuropathy, unspecified; C78.00 Secondary malignant neoplasm of unspecified lung; D63.0 Anemia in neoplastic disease; E11.65 Type 2 diabetes mellitus with hyperglycemia; M54.40 Lumbago with sciatica, unspecified side; D75.839 Thrombocytosis, unspecified; M79.605 Pain in left leg; Z92.3 Personal history of irradiation; Z92.21 Personal history of antineoplastic chemotherapy
CPT/HCPCS: 36415; 71046; 71260; 72148; 74177; 80048; 80053; 81001; 82962; 83036; 84443; 85025; 86850; 86900; 86901; G0378; J1815; J2405; J2470